=== PATIENT | male | born 1980 | race Caucasian/White ===

== ENCOUNTER 2020-02-06 22:15 | Emergency (ER) | payer OTHER ==
[2020-02-06 22:24] VITALS: BP 150/97; RESP 18; TEMP 98.2
[2020-02-06] MEDS ORDERED: LIDOCAINE 1% INJ 10MG/ML (20 ML MDV) SQ ONE (22:35)
[2020-02-06] MEDS ORDERED: IBUPROFEN 400 MG TAB PO STA (22:35)
[2020-02-06] MEDS ORDERED: SULFAMETHOX-TMP 800-160MG 1 EACH TAB PO STA (22:36)
--- NOTE | 2020-02-06 22:38 | ED ---
Skin/Abscess/FB HPI - General Source: patient Mode of arrival: ambulatory Limitations: no limitations - History of Present Illness MD complaint: abscess/boil Onset/Timin -: days(s) Tetanus Up to Date: yes Location: buttocks Severity: moderate Quality: aching Consistency: constant Improves with: none Worsens with: none Associated symptoms: denies other symptoms Treatments Prior to Arrival: attempted to drain pus at home <WillieMiles - Last Filed: 02/06/20 23:48> <Mali Kim - Last Filed: 02/07/20 00:13> - General Chief complaint: Skin/Abscess/Foreign Body Stated complaint: Possible Cyst Time Seen by Provider: 02/06/20 22:26 - Related Data Previous Rx's Medication Instructions Recorded Sulfamethox-Tmp 800-160Mg [Bactrim 1 each PO Q12HR #14 tab 02/06/20 Ds] Allergies Allergy/AdvReac Type Severity Reaction Status Date / Time No Known Allergies Allergy Verified 02/06/20 22:20 Review of Systems ROS Other: All systems not noted in ROS Statement are negative. Constitutional: Denies: fever, chills Respiratory: Denies: cough, dyspnea Cardiovascular: Denies: chest pain, palpitations Gastrointestinal: Denies: abdominal pain, vomiting, diarrhea Skin: Reports: as per HPI, other Hematological/Lymphatic: Denies: easy bleeding (Abscess) <WillieMiles - Last Filed: 02/06/20 23:48> ROS Other: All systems not noted in ROS Statement are negative. <Mali Kim - Last Filed: 02/07/20 00:13> ROS Statement: Those systems with pertinent positive or pertinent negative responses have been documented in the HPI. Past Medical History Past Medical History: No Reported History History of Any Multi-Drug Resistant Organisms: None Reported Additional Past Surgical History / Comment(s): R hand, facial reconstruction Past Psychological History: No Psychological Hx Reported Smoking Status: Current every day smoker Past Alcohol Use History: None Reported Past Drug Use History: Marijuana <WillieMiles - Last Filed: 02/06/20 23:48> General Exam Limitations: no limitations General appearance: alert, in no apparent distress GI/Abdominal exam: Present: soft. Absent: tenderness Extremities exam: Present: normal inspection, normal capillary refill Neurological exam: Present: alert Skin exam: Present: warm, dry, intact, other (Patient has an approximately 5 cm diameter abscess to the left back, with some overlying warmth and erythema.) <Miles Tapia - Last Filed: 02/06/20 23:48> Course Vital Signs 02/06/20 22:20 Temperature 98.2 F Pulse Rate 118 H Respiratory 18 Rate Blood Pressure 150/97 O2 Sat by Pulse 98 Oximetry Procedures - Incision & Drainage Consent Obtained: verbal consent Indication: abscess Site: buttock (left) Size (cm): 3 Anesthetic Used: lidocaine 1% Amount (mLs): 7 I&D Cleaning Method: Betadine Sterile Field Used?: Yes Scalpel Used: #11 Irrigation Performed?: Yes I&D Drainage Obtained: Pus, Blood Packing: Plain Culture Obtained?: No Patient Tolerated Procedure: well <Mali Kim - Last Filed: 02/07/20 00:13> Disposition Is patient prescribed a controlled substance at d/c from ED?: No <Miles Tapia - Last Filed: 02/06/20 23:48> <Mali Kim - Last Filed: 02/07/20 00:13> Clinical Impression: Abscess Disposition: HOME SELF-CARE Condition: Good Instructions (If sedation given, give patient instructions): Abscess Incision and Drainage (ED) Prescriptions: Sulfamethox-Tmp 800-160Mg [Bactrim Ds] 1 each PO Q12HR #14 tab Referrals: None,Stated [Primary Care Provider] - 1-2 days
[2020-02-06] MEDS: HYDROcodone/APAP 5-325MG 1 EACH TAB PO STA ×2 (22:57→23:24)
[2020-02-06] MEDS ORDERED: ACET/COD 300 MG/30 MG STARTER PACK 6 TAB BTL PO STA (23:18)
[2020-02-07 00:26] VITALS: PULSE 108
== END 2020-02-07 00:26 | disposition home or self-care (01) ==
LOC: EC 22:15
DX: L02.31 Cutaneous abscess of buttock (principal); F17.200 Nicotine dependence, unspecified, uncomplicated
CPT/HCPCS: 99283; 10060; J2001

== ENCOUNTER 2020-02-10 11:03 | Emergency (ER) | payer OTHER ==
[2020-02-10 11:06] VITALS: BP 161/92; PULSE 116; RESP 20; TEMP 98
--- NOTE | 2020-02-10 11:39 | ED ---
Skin/Abscess/FB HPI - General Chief complaint: Skin/Abscess/Foreign Body Stated complaint: Revisit- Abscess Time Seen by Provider: 02/10/20 11:09 Source: patient Mode of arrival: ambulatory Limitations: no limitations - History of Present Illness Initial comments: 39yo male presenting today for chief complaint of left buttock abscesses draining. Patient states that he had incision and drainage 4 days ago of left inner buttock abscess. Patient states she has had spontaneous drainage she states is a sharp today had a gush of blood and some purulent drainage. Patient states she was concerned with the amount came to the ER for evaluation. Patient denies any fevers Gen. malaise. He states at times he has had night sweats. Patient states he has been consistently taking his Bactrim twice daily for the last 3 days. Patient denies additional complaints. He appears nontoxic on arrival. 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 - Related Data Home Medications Medication Instructions Recorded Confirmed Acetaminophen-Codeine 300-30mg 1 tab PO Q6H PRN 02/10/20 02/10/20 [Tylenol w/codeine #3] Ibuprofen [Motrin] 800 mg PO Q6H PRN 02/10/20 02/10/20 Sulfamethox-Tmp 800-160Mg [Bactrim 1 tab PO BID@0000,1200 02/10/20 02/10/20 Ds] Previous Rx's Medication Instructions Recorded Cephalexin [Keflex] 500 mg PO Q6HR 7 Days #28 cap 02/10/20 Clindamycin [Cleocin] 450 mg PO Q8H 7 Days #63 capsule 02/10/20 Allergies Allergy/AdvReac Type Severity Reaction Status Date / Time No Known Allergies Allergy Verified 02/10/20 11:39 Review of Systems ROS Statement: Those systems with pertinent positive or pertinent negative responses have been documented in the HPI. ROS Other: All systems not noted in ROS Statement are negative. Past Medical History Past Medical History: No Reported History History of Any Multi-Drug Resistant Organisms: None Reported Additional Past Surgical History / Comment(s): R hand, facial reconstruction Past Psychological History: No Psychological Hx Reported Smoking Status: Current every day smoker Past Alcohol Use History: None Reported Past Drug Use History: Marijuana General Exam - General Exam Comments Initial Comments: General: The patient is awake and alert, in no distress. Eye: +3 mm pupils are equal, round and reactive to light, extra-ocular move ments are intact. No nystagmus. There is normal conjunctiva bilaterally. No signs of icterus. Ears, nose, mouth and throat: There are moist mucous membranes and no oral lesions. : There is induration with actively draining incision (x2) along left lateral gluteal cleft (mid), some mild surrounding erythema and warmth of tissues. no obvious communication with rectum. no bleeding Musculoskeletal: Normal ROM, no tenderness. Strength 5/5. Sensation intact. Radial pulses equal bilaterally 2+. Neurological: A&O x 3. CN II-XII intact grossly, There are no obvious motor or sensory deficits. Coordination appears grossly intact. Speech is normal. Skin: Skin is warm and dry and no rashes or lesions are noted. Psychiatric: Cooperative, appropriate mood & affect, normal judgment. Limitations: no limitations Course Vital Signs 02/10/20 11:04 Temperature 98 F Pulse Rate 116 H Respiratory 20 Rate Blood Pressure 161/92 O2 Sat by Pulse 99 Oximetry Medical Decision Making - Medical Decision Making Pt on bactrim. cc drainage. no bleeding at this time. pt has cellulitis process of the left gluteal cleft associated tissues of the previous abscess. pt abx regime changes. pt is to f/u with general surgery and return for worsening symptoms/bleeding/pain/fevers. agreeable to care plan. Disposition Clinical Impression: Abscess Disposition: HOME SELF-CARE Condition: Good Instructions (If sedation given, give patient instructions): Abscess Incision and Drainage (ED) Additional Instructions: Please use medication as discussed. Please follow-up with family doctor in the next 2 days. Recommend follow-up with general surgery. Please return to emergency room if the symptoms increase or worsen or for any other concerns. Prescriptions: Clindamycin [Cleocin] 450 mg PO Q8H 7 Days #63 capsule Cephalexin [Keflex] 500 mg PO Q6HR 7 Days #28 cap Is patient prescribed a controlled substance at d/c from ED?: No Referrals: None,Stated [Primary Care Provider] - 1-2 days Mariann Alas MD [STAFF PHYSICIAN] - 1-2 days Time of Disposition: 11:39
[2020-02-10] MEDS ORDERED: KETOROLAC 15 MG/ML 1 ML VIAL IM STA (11:59)
== END 2020-02-10 12:06 | disposition home or self-care (01) ==
LOC: EC 11:03
DX: L02.31 Cutaneous abscess of buttock (principal); F17.200 Nicotine dependence, unspecified, uncomplicated
CPT/HCPCS: 99282 ×2; 96372 ×2; J1885

== ENCOUNTER 2020-02-16 10:13 | Emergency (ER) | payer OTHER ==
[2020-02-16 10:26] VITALS: BP 143/89; PULSE 94; RESP 18; TEMP 98.4
--- NOTE | 2020-02-16 10:34 | ED ---
Wound/Laceration HPI - General Stated Complaint: Male Time Seen by Provider: 02/16/20 10:20 Source: patient, RN notes reviewed Mode of arrival: ambulatory Limitations: no limitations - History of Present Illness Initial Comments: 39-year-old male presents emergency from for wound recheck. Patient states that he was seen here twice in the emergency department for buttock abscess. Patient states that his greatly improved at this time doing noticed that he'll be out of antibiotics tomorrow. He reports no fevers or chills no night sweats. He states the pain has decreased. Patient states he did have an I&D pacer he was initially on Bactrim and Keflex was switched to clindamycin and Keflex which is improved his symptoms. Patient states he is able tolerate sitting on the area. The offers no other some associated symptoms - Related Data Home Medications Medication Instructions Recorded Confirmed Acetaminophen-Codeine 300-30mg 1 tab PO Q6H PRN 02/10/20 02/10/20 [Tylenol w/codeine #3] Ibuprofen [Motrin] 800 mg PO Q6H PRN 02/10/20 02/10/20 Sulfamethox-Tmp 800-160Mg [Bactrim 1 tab PO BID@0000,1200 02/10/20 02/10/20 Ds] Previous Rx's Medication Instructions Recorded Cephalexin [Keflex] 500 mg PO Q6HR 7 Days #28 cap 02/10/20 Clindamycin [Cleocin] 450 mg PO Q8H 7 Days #63 capsule 02/10/20 Clindamycin HCl 300 mg PO Q6HR #20 cap 02/16/20 Allergies Allergy/AdvReac Type Severity Reaction Status Date / Time No Known Allergies Allergy Verified 02/10/20 11:39 Review of Systems ROS Statement: Those systems with pertinent positive or pertinent negative responses have been documented in the HPI. ROS Other: All systems not noted in ROS Statement are negative. Past Medical History Past Medical History: No Reported History History of Any Multi-Drug Resistant Organisms: None Reported Additional Past Surgical History / Comment(s): R hand, facial reconstruction Past Psychological History: No Psychological Hx Reported Smoking Status: Current every day smoker Past Alcohol Use History: None Reported Past Drug Use History: Marijuana General Exam Limitations: no limitations General appearance: alert, in no apparent distress Head exam: Present: atraumatic, normocephalic, normal inspection Neck exam: Present: normal inspection, full ROM. Absent: tenderness, meningismu s, lymphadenopathy Respiratory exam: Present: normal lung sounds bilaterally. Absent: respiratory distress, wheezes, rales, rhonchi, stridor Cardiovascular Exam: Present: regular rate, normal rhythm, normal heart sounds. Absent: systolic murmur, diastolic murmur, rubs, gallop, clicks Skin exam: Present: warm, dry, intact, normal color, other (Left buttocks there is 3 open areas with no purulent drainage, no erythema nontender, resolving buttocks abscess). Absent: rash Course Vital Signs 02/16/20 10:22 Temperature 98.4 F Pulse Rate 94 Respiratory 18 Rate Blood Pressure 143/89 O2 Sat by Pulse 99 Oximetry Medical Decision Making - Medical Decision Making This a 39-year-old presented for buttocks abscess. Patient symptoms are resolving, improving. Patient will continue on antibiotics flacks one week. Patient will follow-up with PCP and return for any worsening change in symptoms. Disposition Clinical Impression: Abscess, Encounter for wound re-check Disposition: HOME SELF-CARE Condition: Stable Instructions (If sedation given, give patient instructions): Abscess (ED) Additional Instructions: Please return to the Emergency Department if symptoms worsen or any other concerns. Prescriptions: Clindamycin HCl 300 mg PO Q6HR #20 cap Is patient prescribed a controlled substance at d/c from ED?: No Referrals: None,Stated [Primary Care Provider] - 1-2 days Time of Disposition: 10:34
== END 2020-02-16 10:42 | disposition home or self-care (01) ==
LOC: EC 10:13
DX: Z48.00 Encounter for change or removal of nonsurgical wound dressing (principal); L02.31 Cutaneous abscess of buttock; F17.200 Nicotine dependence, unspecified, uncomplicated
CPT/HCPCS: 99282

== ENCOUNTER → 2023-07-20 | Outpatient (CLI) | payer OTHER ==
[2023-07-20 13:15] LABS: Basophils # (A) 0.06 X 10*3/uL (0.00-0.10); Basophils % (A) 0.7 %; Eosinophils # (A) 0.21 X 10*3/uL (0.04-0.35); Eosinophils % (A) 2.3 %; HCT 47.9 % (39.6-50.0); HGB 16.1 g/dL (13.0-17.0); Lymphocytes % (A) 31.7 %; MCHC 33.6 g/dL (32.0-37.0); MCV 86.2 FL (80.0-97.0); Mean Platelet Volume 9.7 FL (9.5-12.2); Monocytes # (A) 0.62 X 10*3/uL (0.20-1.00); Monocytes % (A) 6.8 %; NRBC Per 100 WBC 0 X 10*3/uL (0.00-0.01); Neutrophils # (A) 5.32 X 10*3/uL (1.80-7.70); Neutrophils % (A) 58.2 %; Platelet Count 187 X 10*3/uL (140-440); RBC 5.56 X 10*6/uL (4.40-5.60); RDW 12.7 % (11.5-14.5); WBC 9.14 X 10*3/uL (4.50-10.00)
[2023-07-20 13:42] LABS: ALT 27 U/L (10-49); AST 25 U/L (14-35); Albumin 4.8 g/dL (3.8-4.9); Albumin/Globulin Ratio 2.18 Ratio (1.60-3.17); Alkaline Phosphatase 87 U/L (41-126); BUN/Creat Ratio 17.27 Ratio (12.00-20.00); Calcium 10.2 mg/dL (8.7-10.3); Carbon Dioxide 23.5 mmol/L (21.6-31.8); Chloride 106 mmol/L (96-109); Chol/HDL Ratio 4.68 Ratio; Globulin 2.2 g/dL (1.6-3.3); Glucose 111 mg/dL (70-110); LDL Cholesterol,Calculated 134.1 mg/dL (0.0-131.0); Potassium 5.1 mmol/L (3.5-5.5); Sodium 142 mmol/L (135-145); Total Bilirubin 0.3 mg/dL (0.3-1.2)
== END | disposition home or self-care (01) ==
LOC: LABWHC1 10:24
PROVIDERS: ATTEND Family Medicine
DX: E11.65 Type 2 diabetes mellitus with hyperglycemia (principal); R79.89 Other specified abnormal findings of blood chemistry
CPT/HCPCS: 36415; 80053; 80061; 82040; 82043; 82570; 83036; 84270; 84403; 84443; 85025

== ENCOUNTER → 2024-02-18 | Outpatient (CLI) | payer OTHER ==
[2024-02-18 15:54] LABS: ALT 42 U/L (10-49); AST 33 U/L (14-35); Albumin 4.6 g/dL (3.8-4.9); Alkaline Phosphatase 114 U/L (41-126); Blood Urea Nitrogen 14.7 mg/dL (9.0-27.0); Calcium 9.7 mg/dL (8.7-10.3); Carbon Dioxide 26.4 mmol/L (21.6-31.8); Chloride 103 mmol/L (96-109); Chol/HDL Ratio 3.94 Ratio; Globulin 2.3 g/dL (1.6-3.3); Glucose 109 mg/dL (70-110); LDL Cholesterol,Calculated 76.2 mg/dL (0.0-131.0); Potassium 4.6 mmol/L (3.5-5.5); Sodium 140 mmol/L (135-145); Total Bilirubin 0.6 mg/dL (0.3-1.2); Total Protein 6.9 g/dL (6.2-8.2)
== END | disposition home or self-care (01) ==
LOC: LABWHC1 08:23
PROVIDERS: ATTEND Family Medicine
DX: E11.65 Type 2 diabetes mellitus with hyperglycemia (principal); R89.1 Abnormal level of hormones in specimens from other organs, systems and tissues
CPT/HCPCS: 36415; 80053; 80061; 83036; 84402; 84403